=== PATIENT | male | born 1935 | race Caucasian/White ===

== ENCOUNTER → 2019-05-26 | Outpatient (CLI) | payer OTHER, MEDICARE ==
[~2019-05-26] VITALS: Ht 165.1 cm; Wt 61.2 kg
[~2019-05-26] MED LIST: ASPIR 8181 MG PO
--- NOTE | 2019-05-29 18:06 | PATH ---
[facility] [place] [address] PATHOLOGY RPT PROCEDURE Name: JUANSHARLA Argueta Room #: REG JON Souza#: [id number] Admission: 05/26/19 Date of : 35 Discharge: Report #: [id number] Path Case #: [id number] [facility] Accession Number: [id number] . 01 Material submitted: . esophagus - BIOPSY ESOPHAGUS R/O EOE . 01 Clinical history: . Pre-OP DX: Esophageal stricture Post-OP DX: Esophageal stricture, hiatal hernia, Schatzki's ring, gastritis . 02 Diagnosis: Squamous mucosa, esophagus rule out EOE, endoscopic biopsy: - Mild active esophagitis with numerous intraepithelial eosinophils ranging up to 70/hpf, see comment. - Negative for metaplasia, dysplasia, or malignancy. (IUV:flyer builder; 05/29/2019) MBR/05/29/2019 . 02 Comment: Examination of the esophageal biopsy tissue shows squamous mucosa with a marked number of intraepithelial eosinophils. Although eosinophils are commonly encountered in inflammation due to reflux esophagitis, the eosinophils in the present specimen are numerous, exceeding 70/hpf. Apart from reflux esophagitis, potential etiologies for the histologic pattern include allergic and collagen vascular diseases, fungal or parasitic infections, and eosinophilic esophagitis (idiopathic). Please correlate with clinical and endoscopic findings. (IUV:flyer builder; 05/29/2019) . 02 Electronically signed: . Nhung Choudhury MD, Pathologist NPI- [id number] . 01 Gross description: . Received in formalin labeled "Sharla Pastrana Jr, BX esophagitis, rule out EOE," are multiple segments of martini soft tissue measuring 1.5 x 0.6 x 0.1 cm in aggregate dimensions. The specimen is filtered and entirely submitted in cassette A1. (TSD; 05/26/2019) TOB/TOB . 02 Pathologist provided ICD-10: K20.9 . 02 CPT . [id number] [place] [address] PATHOLOGY RPT PROCEDURE Name: SHARLA PASTRANA JR Room #: REG [facility]#: [id number] Admission: 05/26/19 Date of : 35 Discharge: Report #: [id number] Path Case #: [id number] Specimen Comment: A courtesy copy of this report has been sent to Specimen Comment: [phone], . Specimen Comment: Report sent to / DR GERMAIN Performed at: [address], [place], [place] [id number] MD Marcos Ricardo MD Phone: [phone] Performed at: [address] [id number] MD Nhung Choudhury MD Phone: [phone]
--- NOTE | 2019-05-30 15:37 | P ---
[facility] [address] [place] [address] PROCEDURE REPORT Name: SHARLA MARTINEZ JR Room #: REG [facility]#: [id number] Admission: 05/26/19 Attend Phys: Juan Manuel Albert MD Discharge: Date of : 35 Report #: [id number] THIS REPORT FOR: //name// CC: Iglesia Albert DATE OF SERVICE: 05/26/2019 OUTPATIENT UPPER ENDOSCOPY REPORT BRIEF HISTORY: The patient is an 84-year-old male well known to me with a history of a Schatzki ring and recurrent dysphagia. He presents with intermittent recurrent solid food dysphagia. PREOPERATIVE DIAGNOSES: History of Schatzki ring with recurrent dysphagia. POSTOPERATIVE DIAGNOSES: 1. Moderately tight Schatzki ring. 2. Erosive esophagitis, grade B. 3. Small hiatus hernia. 4. Diffuse gastritis. 5. Furrows of the esophagus, raising the possibility of eosinophilic esophagitis. MEDICATIONS: Deep sedation with propofol per anesthesia. SPECIMEN: Biopsies of esophagus, rule out eosinophilic esophagitis. ESTIMATED BLOOD LOSS: 3 mL. PROCEDURE: EGD with balloon dilation of Schatzki ring and biopsies of esophagus. FINDINGS: Prior to propofol sedation, procedure of upper endoscopy was discussed with the patient as well as potential risks and its complications. He indicates he understands and desires to proceed. DESCRIPTION OF PROCEDURE: With the patient in left lateral decubitus position, the Olympus video endoscope was inserted in the cervical esophagus under direct vision without difficulty. Examination of this organ through its entire length revealed normal esophageal mucosa in the proximal esophagus. In the mid esophagus, there were furrows suggestive of eosinophilic esophagitis. Random biopsies were obtained. The scope was advanced into the distal esophagus and at the GE junction, there was noted to be moderately tight Schatzki ring. This ring is similar to what has been previously noted. Once again, the ring was too [facility] [address] [place] [address] PROCEDURE REPORT Name: SHARLA MARTINEZ JR Room #: REG [facility]#: [id number] Admission: 05/26/19 Attend Phys: Juan Manuel Albert MD Discharge: Date of : 35 Report #: [id number] tight to allow forward advancement of the scope. We then advanced an 8, 9 and 10 mm balloon catheter across the stricture and dilated to all 3 levels per therapeutic riding instructor's recommendations. Following dilation with the 10 mm balloon, the scope did pass. There was some friability, but no significant mucosal tearing was seen. The scope was advanced and noted about a 2-3 cm sliding type hiatus hernia. The mucosa in the hernia was unremarkable. Scope was advanced into the stomach, which was examined on end view as well as retroflexed views. There was a pattern of gastritis that had been previously noted. No ulcers were seen. Upon retroflexion, the hiatus hernia was seen. No other abnormalities were identified. The pylorus was unremarkable. Duodenal bulb was unremarkable and postbulbar duodenal sweep was inspected and noted to be unremarkable. At that point, the scope was slowly withdrawn and careful circumferential views were obtained. The scope was brought back into the esophagus and we then dilated with a 10, 11 and 12 mm balloon with good results. There was good dilation with a 12 mm balloon. There was mucosal tearing along the edges of the ring and therefore it was felt best to hold further dilation at this point in time. The scope was withdrawn. The patient tolerated the procedure well. CONDITION OF THE PATIENT UPON DISCHARGE: Following procedure, the patient was drowsy, aroused, conversant and he will be discharged home when fully ambulatory. INSTRUCTIONS TO THE PATIENT AND FAMILY AT THE TIME OF DISCHARGE: He does have esophagitis. We will have him use a PPI daily. Also, since we only got up to 12 mm today, we will have him return in 2 weeks for repeat dilation. He should note improvement of symptoms, but still may have some symptoms of dysphagia. We will follow up on biopsies with regards to possibly eosinophilic esophagitis and make further recommendations. <ELECTRONICALLY SIGNED> By: Juan Manuel Albert MD 05/30/19 [id number] [id number] Juan Manuel Albert MD /nt
== END | disposition home or self-care (01) ==
LOC: GI 08:32
DX: K29.70 Gastritis, unspecified, without bleeding (principal); K22.2 Esophageal obstruction; K20.0 Eosinophilic esophagitis; K44.9 Diaphragmatic hernia without obstruction or gangrene; Z98.41 Cataract extraction status, right eye; Z98.42 Cataract extraction status, left eye; Z98.890 Other specified postprocedural states; Z79.899 Other long term (current) drug therapy; Z79.82 Long term (current) use of aspirin
CPT/HCPCS: 62110; 62900

== ENCOUNTER → 2019-06-08 | Outpatient (CLI) | payer OTHER ==
[~2019-06-08] MED LIST changes: +NEXIUM40 MG PO
== END ==
LOC: CAT 14:22
DX: Z13.6 Encounter for screening for cardiovascular disorders (principal); E78.00 Pure hypercholesterolemia, unspecified; I25.10 Atherosclerotic heart disease of native coronary artery without angina pectoris

== ENCOUNTER → 2019-06-09 | Outpatient (CLI) | payer OTHER, MEDICARE ==
[~2019-06-09] VITALS: Ht 165.1 cm; Wt 61.2 kg
--- NOTE | ~2019-06-09 | P ---
[facility] [place] [address] [place] [address] PROCEDURE REPORT Name: JUANSHARLA Argueta Room #: REG [facility]#: [id number] Admission: 06/09/19 ������������������ Attend Phys: Juan Manuel Albert MD Discharge: ������������������ Date of : 35 Report #: [id number] THIS REPORT FOR: //name// CC: Iglesia Albert OUTPATIENT UPPER ENDOSCOPY REPORT BRIEF HISTORY: The patient is an 84-year-old male with history of Schatzki ring as well as eosinophilic esophagitis for followup dilation. PREOPERATIVE DIAGNOSIS: Esophageal ring for repeat dilation. POSTOPERATIVE DIAGNOSES: 1. Moderate Schatzki ring. 2. Small hiatus hernia. 3. Diffuse gastritis. 4. Eosinophilic esophagitis. MEDICATIONS: Deep sedation with propofol per anesthesia. SPECIMEN: None. ESTIMATED BLOOD LOSS: 3 mL. PROCEDURE: EGD with balloon dilation of Schatzki ring. FINDINGS: Procedure of upper endoscopy and dilation was discussed with the patient as well potential risks and its complications including perforation. He indicates he understands and desires to proceed. DESCRIPTION OF PROCEDURE: With the patient in left lateral decubitus position, the Olympus video endoscope was inserted in cervical esophagus under direct vision without difficulty. Examination of this organ through its entire length revealed intact esophageal mucosa. Upon careful inspection, there were very subtle rings and furrows throughout the body of the esophagus. However, these rings were barely discernible. However, at the GE junction, as previously noted, he had a relatively typical appearing moderately tight Schatzki ring, which was noted in the past. The scope passed easily through the ring. The ring had a smooth benign appearance and there was no evidence of ulceration or Barnett esophagus. A 2-3 cm sliding type hiatus hernia was encountered as well. The scope was advanced fully into the stomach, was examined on end view as well as retroflexed views. There was a pattern of gastritis, which has been previously noted and biopsied and the biopsies were not repeated today. Upon retroflexion, the hiatus hernia was seen. No mass lesions were seen. The pylorus, duodenal bulb and postbulbar duodenal sweep were inspected and noted to [facility] [address] [place] [address] PROCEDURE REPORT Name: SHARLA MARTINEZ JR Room #: REG [facility]#: [id number] Admission: 06/09/19 ������������������ Attend Phys: Juan Manuel Albert MD Discharge: ������������������ Date of : 35 Report #: [id number] be unremarkable. The scope was withdrawn back into the esophagus. In the distal esophagus, the ring was again visualized. Two weeks ago, he was dilated to 12 mm. We used a 12-13.5-15 mm balloon. We dilated all 3 levels. There was no mucosal injury at the ring until after the 15 balloon was used. There was a small superficial tear. It was felt best not to attempt to go any further. Dilation was ceased at that point. The scope was withdrawn. The patient tolerated the procedure well. In addition, I might add that the last time, he did have evidence of esophagitis and there was no evidence of esophagitis today. CONDITION OF THE PATIENT UPON DISCHARGE: Following procedure, the patient was drowsy, will be discharged to home when fully ambulatory. INSTRUCTIONS TO THE PATIENT AND FAMILY AT THE TIME OF DISCHARGE: He may resume diet. He should continue his Nexium 40 mg daily. He reports that he was told many years ago he had eosinophilic esophagitis. Again, I think he has 2 issues, a typical appearing Schatzki ring as well as eosinophilic esophagitis. We discussed the role of steroids today, but he is not interested in pursuing steroids. He may do well with just PPI alone. He plans to go to [place] for the winter in late June. We will have him return to see me in followup in the office prior to going to [place]. We will again discuss the role of steroids. He does report that he did have improvement of his dysphagia following his last dilation. ��������������������������������������������� ���������������������������������������� By: ��������������������������������������������� [id number] Juan Manuel Albert MD /nt
== END | disposition home or self-care (01) ==
LOC: GI 07:41
DX: K22.2 Esophageal obstruction (principal); K44.9 Diaphragmatic hernia without obstruction or gangrene; K21.9 Gastro-esophageal reflux disease without esophagitis; Z98.41 Cataract extraction status, right eye; Z98.42 Cataract extraction status, left eye; Z79.899 Other long term (current) drug therapy; Z79.82 Long term (current) use of aspirin
CPT/HCPCS: 62110; 62900

== ENCOUNTER → 2020-05-20 | Outpatient (CLI) | payer OTHER | LOC: SJCVCIMAG 08:20 | PROVIDERS: ATTEND Internal Medicine Cardiovascular Disease | DX: I08.3 Combined rheumatic disorders of mitral, aortic and tricuspid valves (principal); I65.23 Occlusion and stenosis of bilateral carotid arteries; R00.1 Bradycardia, unspecified; E78.5 Hyperlipidemia, unspecified; Z79.899 Other long term (current) drug therapy ==

== ENCOUNTER → 2020-07-24 | Outpatient (CLI) | payer OTHER | LOC: SJCVCIMAG 09:02 | PROVIDERS: ATTEND Internal Medicine Cardiovascular Disease | DX: R06.00 Dyspnea, unspecified (principal); R06.02 Shortness of breath; E78.00 Pure hypercholesterolemia, unspecified; Z79.899 Other long term (current) drug therapy ==